=== PATIENT | female | born 1935 | race Caucasian/White ===

== ENCOUNTER 2016-04-15 04:13 | Emergency (ER) | payer MEDICARE ==
[2016-04-15 05:02] LABS: #Basophils 0.1 thou/uL (0.0-0.2); #Lymphocytes 0.8 thou/uL (1.20-3.40); #Monocytes 0.7 thou/uL (0.11-0.59); #Neutrophils 4.2 thou/uL (1.40-6.50); %Eosinophils 0.7 % (0.0-10.0); %Lymphocytes 14.4 % (21.0-51.0); %Monocytes 11.6 % (0.0-10.0); %Neutrophils 72.2 % (42.0-75.0); Hemoglobin 10.2 g/dL (12.0-16.0); Mean Corpuscular Hemoglobin 31.6 pg (27.0-31.0); Mean Corpuscular Volume 92.8 fl (81.0-99.0); Mean Platelet Volume 7.3 fL (7.4-10.4); Platelet Count 209 thou/uL (130-400); RBC Distribution Width 13.2 % (11.5-14.5); Red Blood Cell (RBC) Count 3.23 mill/uL (4.20-5.40); White Blood Cell (WBC) Count 5.7 thou/uL (4.8-10.8)
[2016-04-15 05:04] LABS: INR-International Normal Ratio 1.1; PTT 43.4 SEC (22.9-36.1); Prothrombin Time 14.5 SEC (12.0-14.7)
[2016-04-15 05:14] LABS: ALT (SGPT) 12 U/L (0-55); AST (SGOT) 23 U/L (5-34); Albumin 3.8 g/dL (3.4-4.8); Alkaline Phosphatase 112 U/L (40-150); Anion Gap 18 mmol/L (10-20); BUN (Urea Nitrogen) 19 mg/dL (9.8-20.1); Calc. Creatinine Clearance 0 mL/min (70-130); Calcium 9.5 mg/dL (7.8-10.44); Carbon Dioxide 29 mmol/L (23-31); Chloride 88 mmol/L (98-107); Estimated GFR-MDRD 48; Globulin 3.3 g/dL (2.4-3.5); Glucose 105 mg/dL (83-110); Potassium 3.2 mmol/L (3.5-5.1); Protein, Total 7.1 g/dL (5.8-8.1); Sodium 132 mmol/L (136-145)
[2016-04-15] MEDS ORDERED: Potassium Chloride 10 MEQ TAB ONE (05:29)
--- NOTE | 2016-04-15 05:37 | ERRECORD ---
[facility] EMERGENCY RECORD HPI EPISTAXIS (04:36 SHAN) CHIEF COMPLAINT: Patient presents for evaluation of epistaxis, awoke with right side of nose bleeding; ems called and transported; but had stopped by time ems had arrived. HISTORIAN: History provided by patient, History provided by patient's spouse, History provided by patient's caregiver. EXACERBATED BY: Patient's condition exacerbated by nothing. RELIEVED BY: Patient's condition relieved by nothing. ROS CONSTITUTIONAL: Negative constitutional review of systems, Historian denies chills, denies fever. (04:37 SHAN) EYES: Negative eye review of systems. (04:37 SHAN) ENT: Historian reports epistaxis. (04:38 SHAN) CARDIOVASCULAR: Negative cardiovascular review of systems, Historian denies chest pain, denies palpitations. (04:37 SHAN) RESPIRATORY: Negative respiratory review of systems, Historian denies cough, denies shortness of breath. (04:37 SHAN) GI: Negative gastrointestinal review of systems, Historian denies abdominal pain, denies constipation, denies diarrhea. (04:37 SHAN) MUSCULOSKELETAL: Negative musculoskeletal review of systems. (04:37 SHAN) SKIN: Negative skin review of systems. (04:37 SHAN) NEUROLOGIC: Negative neurologic review of systems. (04:37 SHAN) ENDOCRINE: Negative endocrine review of systems. (04:37 SHAN) HEMO/LYMPHATIC: Normal hematologic/lymphatic system review. (04:37 SHAN) PSYCHIATRIC: Negative psychiatric review of systems. (04:37 SHAN) NOTES: All other ROS is negative except as listed in HPI. (04:37 SHAN) PAST MEDICAL HISTORY MEDICAL HISTORY: Past medical history includes cardiac history, congestive heart failure, arrhythmia, atrial fibrillation, Treated with a pacemaker, since 2009, Past medical history includes history of diabetes, Type II, Past medical history includes endocrine disease. (04:31 MCRS) FEMALE SURGICAL HISTORY: left lower lobe part of lung removed 1964 - unsure of procedure - hernia repair naval 1997., Surgical history of coronary artery bypass graft surgery, Date of surgery 2006, Surgical history of hysterectomy, Date of surgery 1963, Surgical history of orthopedic surgery, right orif, Date of surgery 2015, Surgical history of thyroidectomy, Date of surgery 1966. (04:31 MCRS) PSYCHIATRIC HISTORY: Notes: denies. (04:31 MCRS) SOCIAL HISTORY: Patient denies alcohol use, Patient denies drug use, Patient is a former tobacco user, smoked &a-1R&a+25V*p+0X*n1940P*c202B*c15G*c2P*p-0X&a-25V&a+1R Name: Delilah Smith : 1935 F80 MedRec: [id number] AcctNum: [id number] Prepared: MonApr 15, 2016 06:11 by Interface Page 1 of 4 pMD [facility] EMERGENCY RECORD cigarettes, Patient quit smoking more than 10 years ago, Lives at home, with family. (04:31 MCRS) NOTES: I have reviewed and agree with the PMH/PSxH/FamHx/SocHx obtained by the nurse. (04:37 SHAN) KNOWN ALLERGIES atorvastatin calcium rosuvastatin calcium simvastatin CURRENT MEDICATIONS metFORMIN: TABLET : Strength - 500 mg : ORAL Patient Dose: 500 mg Oral 2 times a day (before meals). (04:29 AGAN) pantoprazole: TABLET, DELAYED RELEASE (ENTERIC COATED) : Strength - 40 mg : ORAL Patient Dose: 40 mg Oral once a day (in the morning). (04:30 AGAN) Requip: TABLET : Strength - 1 mg : ORAL Patient Dose: 1 mg Oral 2 times a day (before meals). (04:30 AGAN) furosemide: TABLET : Strength - 40 mg : ORAL Patient Dose: 40 mg Oral 2 times a day (before meals). (04:30 AGAN) Aspirin For Children: TABLET, CHEWABLE : Strength - 81 mg : ORAL Patient Dose: 81 mg Oral once a day (in the morning). (04:31 AGAN) potassium chloride: TABLET, EXTENDED RELEASE : Strength - 20 mEq : ORAL Patient Dose: 20 mcg Oral 3 times a day. (04:32 AGAN) isosorbide mononitrate: TABLET, EXTENDED RELEASE 24 HR : Strength - 60 mg : ORAL Patient Dose: 60 mg Oral once a day (in the morning). (04:32 AGAN) lovastatin: TABLET : Strength - 20 mg : ORAL Patient Dose: 20 mg Oral once a day (in the evening). (04:33 AGAN) meTOPROLOL tartrate: TABLET : Strength - 50 mg : ORAL Patient Dose: 50 mg Oral 2 times a day. (04:34 AGAN) metolazone: TABLET : Strength - 2.5 mg : ORAL Patient Dose: 2.5 mg Oral once a day (in the morning). (04:34 AGAN) &a-1R&a+25V*p+0X*s3475K*c202B*c15G*c2P*p-0X&a-25V&a+1R Name: Delilah Smith : 1935 F80 MedRec: [id number] AcctNum: [id number] Prepared: MonApr 15, 2016 06:11 by Interface Page 2 of 4 pMD [facility] EMERGENCY RECORD VITAL SIGNS VITAL SIGNS: BP: 132/61 (Lying), Pulse: 81, Resp: 21, Temp: 96.6 (Tympanic), Pain: 0, O2 sat: 99 on Room Air, Time: 04/15/2016 04:14. (04:14 MCRS) BP: 113/49, Pulse: 86, Resp: 18, Temp: 97.0, Pain: 0, O2 sat: 100 on ra, Time: 04/15/2016 05:50. (05:50 MCRS) PHYSICAL EXAM (04:37 SHAN) CONSTITUTIONAL: Vital signs reviewed, Patient appears non toxic, Patient alert and oriented to person, place and time, Pt is in no apparent distress. HEAD: Head exam included findings of head atraumatic, normocephalic. EYES: Eye exam included findings of eyelids normal to inspection, Pupils equally round and reactive to light, Extraocular muscles intact. ENT: ENT exam normal, Nose exam normal, no nasal deformity, no bleeding from nares, Pharynx exam normal, Mouth exam normal, mucous membranes moist. Right nares with recent blood present and some mucosal inflammation. NECK: Neck exam included findings of normal range of motion, Trachea midline. RESPIRATORY CHEST: Respiratory and chest exam normal, Breath sounds clear, No wheezing, No rales, Chest exam included findings of chest movement symmetrical, Chest expansion equal. CARDIOVASCULAR: Cardiovascular assessment normal, Cardiovascular exam included findings of heart rate regular rate and rhythm, Heart sounds normal. Defibrillator in right upper chest. ABDOMEN FEMALE: Abdominal exam included findings of abdomen nontender, Bowel sounds normal, no mass, no pulsatile masses, no peritoneal signs. BACK: Back exam included findings of normal inspection, range of motion normal, no costovertebral angle tenderness. UPPER EXTREMITY: Upper extremity exam included findings of inspection normal, Range of motion normal. LOWER EXTREMITY: Range of motion normal, both legs with edema, left more than right; chronic by hx but fairly marked. left has been more since the prior venous harvesting from it for bypass surgery. NEURO: Neuro exam findings include patient oriented to person, place and time, Speech normal, no focal motor deficits, no focal sensory deficits. SKIN: Skin exam included findings of skin warm, dry, and normal in color. LYMPHATIC: Lymphatic exam normal. PSYCHIATRIC: Psychiatric exam included findings of patient oriented to person place and time, Normal affect. MEDICATION ADMINISTRATION SUMMARY &a-1R&a+25V*p+0X*c6509Z*c202B*c15G*c2P*p-0X&a-25V&a+1R Name: Delilah Smith : 1935 F80 MedRec: [id number] AcctNum: [id number] Prepared: MonApr 15, 2016 06:11 by Interface Page 3 of 4 pMD [facility] EMERGENCY RECORD Drug Name: *potassium chloride oral, Dose Ordered: 2 tab(s), Route: Oral, Status: Given, Time: 05:32 04/15/2016, *Additional information available in notes, Detailed record available in Medication Service section. DOCTOR NOTES (05:26 SHAN) TEXT: No more bleeding; discussed care of nosebleeds. Labs good; mildly low potassium; mild anemia. PROBLEM LIST No recorded problems DIAGNOSIS (05:28 SHAN) FINAL: PRIMARY: EPISTAXIS. PRESCRIPTION No recorded prescriptions DISPOSITION PATIENT: Disposition Type: Discharge, Disposition: *Discharge Home. (05:28 SHAN) Disposition Transport: Car. (06:03 [facility]) Patient left the department. (06:04 [facility]) Cedeño: DREW=AMBIKA Joseph, Celestino FOSS=AMBIKA Hunter, Baltazar RODRIGEZ=MD Merritt, Flaco &a-1R&a+25V*p+0X*r8170K*c202B*c15G*c2P*p-0X&a-25V&a+1R Name: Delilah Smith : 1935 F80 MedRec: [id number] AcctNum: [id number] Prepared: MonApr 15, 2016 06:11 by Interface Page 4 of 4 pMD SHAWNA
--- NOTE | 2016-04-15 05:43 | PICIS ---
[facility] EMERGENCY RECORD COMMUNICATIONS (04:19 AGAN) COMMUNICATIONS: Ambulance service, 0400: Call received from EMT-P Sonny of [facility]. They are bringing in an 80 years old female who had a nose bleed 1 1/2 hours ago. The bleeding has stopped at this time. ETA 5 minutes. TRIAGE (MonApr 15, 2016 04:19 MCRS) TRIAGE NOTES: nose bleed 0200 start - stopped prior to arrival -. (MonApr 15, 2016 04:19 MCRS) PATIENT: NAME: Delilah Smith, AGE: 80, GENDER: female, : Mon1935, TIME OF GREET: MonApr 15, 2016 04:13, PREFERRED LANGUAGE: Icelandic, ETHNICITY: Not or , ECODE BILLING MAP: [facility], SSN: [id number], Zip Code: [address], PHONE: , , , PERSON ID: [id number], PCP: romina. (MonApr 15, 2016 04:19 MCRS) KG WEIGHT: 60.8 (est.). (05:08 MCRS) COMPLAINT: NOSE BLEED. (MonApr 15, 2016 04:19 MCRS) ADMISSION: URGENCY: 4 Non Urgent, ADMISSION SOURCE: Home, TRANSPORT: AMBULANCE - OTHER, BED: ED -01. (MonApr 15, 2016 04:19 MCRS) ASSESSMENT: Assessment: nose bleed 0230- stopped in route to hospital, Symptoms began 0230. (04:31 MCRS) SIRS SCORING: Heart Rate 55-109 (0), Temp range 96.8-101.1 (0), respiratory rate 12-24 (0), Mental Status altered: no (0), Infection or Suspected Infection: No. (04:31 MCRS) PROVIDERS: TRIAGE NURSE: Baltazar Hunter RN. (MonApr 15, 2016 04:19 MCRS) VITAL SIGNS: BP 132/61, (Lying), Pulse 81, Resp 21, Temp 96.6, (Tympanic), Pain 0, O2 Sat 99, on Room Air, Time 04/15/2016 04:14. (04:14 MCRS) KNOWN ALLERGIES atorvastatin calcium rosuvastatin calcium simvastatin CURRENT MEDICATIONS metFORMIN: TABLET : Strength - 500 mg : ORAL Patient Dose: 500 mg Oral 2 times a day (before meals). (04:29 AGAN) pantoprazole: TABLET, DELAYED RELEASE (ENTERIC COATED) : Strength - 40 mg : ORAL Patient Dose: 40 mg Oral once a day (in the morning). (04:30 AGAN) Requip: TABLET : Strength - 1 mg : ORAL Patient Dose: 1 mg Oral 2 times a day (before meals). (04:30 AGAN) &a-1R&a+25V*p+0X*l5072H*c202B*c15G*c2P*p-0X&a-25V&a+1R Name: Delilah Smith : 1935 F80 MedRec: [id number] AcctNum: [id number] Prepared: MonApr 15, 2016 06:16 by Interface Page 1 of 8 pMD [facility] EMERGENCY RECORD furosemide: TABLET : Strength - 40 mg : ORAL Patient Dose: 40 mg Oral 2 times a day (before meals). (04:30 AGAN) Aspirin For Children: TABLET, CHEWABLE : Strength - 81 mg : ORAL Patient Dose: 81 mg Oral once a day (in the morning). (04:31 AGAN) potassium chloride: TABLET, EXTENDED RELEASE : Strength - 20 mEq : ORAL Patient Dose: 20 mcg Oral 3 times a day. (04:32 AGAN) isosorbide mononitrate: TABLET, EXTENDED RELEASE 24 HR : Strength - 60 mg : ORAL Patient Dose: 60 mg Oral once a day (in the morning). (04:32 AGAN) lovastatin: TABLET : Strength - 20 mg : ORAL Patient Dose: 20 mg Oral once a day (in the evening). (04:33 AGAN) meTOPROLOL tartrate: TABLET : Strength - 50 mg : ORAL Patient Dose: 50 mg Oral 2 times a day. (04:34 AGAN) metolazone: TABLET : Strength - 2.5 mg : ORAL Patient Dose: 2.5 mg Oral once a day (in the morning). (04:34 AGAN) VITAL SIGNS VITAL SIGNS: BP: 132/61 (Lying), Pulse: 81, Resp: 21, Temp: 96.6 (Tympanic), Pain: 0, O2 sat: 99 on Room Air, Time: 04/15/2016 04:14. (04:14 MCRS) BP: 113/49, Pulse: 86, Resp: 18, Temp: 97.0, Pain: 0, O2 sat: 100 on ra, Time: 04/15/2016 05:50. (05:50 MCRS) NURSING ASSESSMENT: ENT (04:31 MCRS) CONSTITUTIONAL: Patient arrives, via stretcher, History obtained from patient, Patient appears comfortable, Patient cooperative, Patient alert, Oriented to person, place and time, Skin warm, Skin dry, Skin normal in color, Mucous membranes pink, Mucous membranes moist, Patient is well-groomed, Patient complains of nose bleed. ENT: Ear assessment findings include ear normal to inspection, Nasal assessment findings include nose normal to inspection, Sinuses normal, Nasal mucosa, unable to visualize due to clot frombleeding, Mouth and throat assessment findings include mouth inspection normal, Mucous membranes pink, and moist, Able to swallow, Speech normal. RESPIRATORY/CHEST: Breath sounds clear, Respiratory assessment findings include respiratory effort easy, Respirations regular, Conversing normally, Neck and chest exam findings include trachea midline, Chest expansion equal, Chest movement symmetrical. &a-1R&a+25V*p+0X*z3279P*c202B*c15G*c2P*p-0X&a-25V&a+1R Name: Delilah Smith : 1935 F80 MedRec: [id number] AcctNum: [id number] Prepared: MonApr 15, 2016 06:16 by Interface Page 2 of 8 pMD [facility] EMERGENCY RECORD SAFETY: Side rails up, Cart/Stretcher in lowest position, Family at bedside, Call light within reach, Hospital ID band on. NURSING PROCEDURE: ARBORICULTURE TEACHER (04:52 MCRS) ARBORICULTURE TEACHER: Cardiac monitoring indicated for history chf and at fib with pacemaker placement, Patient placed on cardiac exercise specialist, Heart rate: 80, showing atrial fibrillation, Patient placed on non-invasive blood pressure monitor, Patient placed on continuous pulse oximetry. NURSING PROCEDURE: DISCHARGE NOTE (05:50 MCRS) DISCHARGE: Patient discharged to home, in a wheelchair, family driving, accompanied by //partner, Summary of Care printed/ provided, Patient requested and was provided an electronic copy of Discharge Instructions, Transition record given to patient, Discharge instructions given to patient, Discharge instructions given to daughter and son, Simple or moderate discharge teaching performed, discharge instructions, Medication reconciliation form given, and reviewed with patient, and reviewed with see list, Above person(s) verbalized understanding of discharge instructions and follow-up care, Patient treated and evaluated by physician. BELONGINGS: Valuables remain with patient. VITAL SIGNS: BP: 113, / 49, Pulse: 86, Resp: 18, Temp: 97.0, Pain: 0, O2 sat: 100, on: ra. NURSING PROCEDURE: NURSE NOTES (04:51 [facility]) NURSES NOTES: Warm blanket given to patient. ORDER DETAILS Order Name: CBC with Differential, Status: Active, Time: 04:36 04/15/2016, User: ELIA, - Ordered for: MD Bang Stanley, - Entered by: MD Bang Stanley - [facility] Apr 15, 2016 04:36, - Quantity: 1, Order Name: Comprehensive Metabolic Panel, Status: Active, Time: 04:36 04/15/2016, User: ELIA, - Ordered for: MD Bang Stanley, - Entered by: MD Bang Stanley - [facility] Apr 15, 2016 04:36, - Quantity: 1, Order Name: Protime with INR, Status: Active, Time: 04:36 04/15/2016, User: ELIA, - Ordered for: MD Bang Stanley, - Entered by: MD Bang Stanley - [facility] Apr 15, 2016 04:36, - Quantity: 1, Order Name: PTT, Status: Active, Time: 04:36 04/15/2016, User: ELIA, - Ordered for: MD Bang Stanley, - Entered by: MD Bang Stanley - [facility] Apr 15, 2016 04:36, - Quantity: 1. &a-1R&a+25V*p+0X*l3737I*c202B*c15G*c2P*p-0X&a-25V&a+1R Name: Delilah Smith : 1935 F80 MedRec: [id number] AcctNum: [id number] Prepared: MonApr 15, 2016 06:16 by Interface Page 3 of 8 pMD [facility] EMERGENCY RECORD MEDICATION ADMINISTRATION SUMMARY Drug Name: *potassium chloride oral, Dose Ordered: 2 tab(s), Route: Oral, Status: Given, Time: 05:32 04/15/2016, *Additional information available in notes, Detailed record available in Medication Service section. MEDICATION SERVICE potassium chloride oral: Order: potassium chloride oral (potassium chloride) - Dose: 2 tab(s) : Oral Schedule: Now Notes: 10 meq each; total of 20 meq Ordered by: Flaco Bang MD Entered by: Flaco Bang MD MonApr 15, 2016 05:26 , Acknowledged by: Baltazar Hunter RN MonApr 15, 2016 05:28 Documented as given by: Baltazar Hunter RN MonApr 15, 2016 05:32 Patient, Medication, Dose, Route and Time verified prior to administration. Amount given: 20meq, Site: Medication administered P.O., Snack given with administration, Patient appears Awake and alert- acceptable, Correct patient, time, route, dose and medication confirmed prior to administration, Patient advised of actions and side-effects prior to administration, Allergies confirmed and medications reviewed prior to administration, Patient in position of comfort, Side rails up, Cart in lowest position, Family at bedside. : Follow Up : Response assessment performed, No signs or symptoms of allergic reaction noted, No change in symptoms. (05:50 MCRS) HPI EPISTAXIS (04:36 SHAN) CHIEF COMPLAINT: Patient presents for evaluation of epistaxis, awoke with right side of nose bleeding; ems called and transported; but had stopped by time ems had arrived. HISTORIAN: History provided by patient, History provided by patient's spouse, History provided by patient's caregiver. EXACERBATED BY: Patient's condition exacerbated by nothing. RELIEVED BY: Patient's condition relieved by nothing. ROS CONSTITUTIONAL: Negative constitutional review of systems, Historian denies chills, denies fever. (04:37 SHAN) EYES: Negative eye review of systems. (04:37 SHAN) ENT: Historian reports epistaxis. (04:38 SHAN) CARDIOVASCULAR: Negative cardiovascular review of systems, Historian denies chest pain, denies palpitations. (04:37 SHAN) RESPIRATORY: Negative respiratory review of systems, Historian denies cough, denies shortness of breath. (04:37 SHAN) GI: Negative gastrointestinal review of systems, Historian denies abdominal pain, denies constipation, denies diarrhea. (04:37 SHAN) &a-1R&a+25V*p+0X*m1673F*c202B*c15G*c2P*p-0X&a-25V&a+1R Name: Delilah Smith : 1935 F80 MedRec: [id number] AcctNum: [id number] Prepared: MonApr 15, 2016 06:16 by Interface Page 4 of 8 pMD [facility] EMERGENCY RECORD MUSCULOSKELETAL: Negative musculoskeletal review of systems. (04:37 SHAN) SKIN: Negative skin review of systems. (04:37 SHAN) NEUROLOGIC: Negative neurologic review of systems. (04:37 SHAN) ENDOCRINE: Negative endocrine review of systems. (04:37 SHAN) HEMO/LYMPHATIC: Normal hematologic/lymphatic system review. (04:37 SHAN) PSYCHIATRIC: Negative psychiatric review of systems. (04:37 SHAN) NOTES: All other ROS is negative except as listed in HPI. (04:37 SHAN) PAST MEDICAL HISTORY MEDICAL HISTORY: Past medical history includes cardiac history, congestive heart failure, arrhythmia, atrial fibrillation, Treated with a pacemaker, since 2009, Past medical history includes history of diabetes, Type II, Past medical history includes endocrine disease. (04:31 MCRS) FEMALE SURGICAL HISTORY: left lower lobe part of lung removed 1964 - unsure of procedure - hernia repair naval 1997., Surgical history of coronary artery bypass graft surgery, Date of surgery 2006, Surgical history of hysterectomy, Date of surgery 1963, Surgical history of orthopedic surgery, right orif, Date of surgery 2015, Surgical history of thyroidectomy, Date of surgery 1966. (04:31 MCRS) PSYCHIATRIC HISTORY: Notes: denies. (04:31 MCRS) SOCIAL HISTORY: Patient denies alcohol use, Patient denies drug use, Patient is a former tobacco user, smoked cigarettes, Patient quit smoking more than 10 years ago, Lives at home, with family. (04:31 MCRS) NOTES: I have reviewed and agree with the PMH/PSxH/FamHx/SocHx obtained by the nurse. (04:37 SHAN) PHYSICAL EXAM (04:37 SHAN) CONSTITUTIONAL: Vital signs reviewed, Patient appears non toxic, Patient alert and oriented to person, place and time, Pt is in no apparent distress. HEAD: Head exam included findings of head atraumatic, normocephalic. EYES: Eye exam included findings of eyelids normal to inspection, Pupils equally round and reactive to light, Extraocular muscles intact. ENT: ENT exam normal, Nose exam normal, no nasal deformity, no bleeding from nares, Pharynx exam normal, Mouth exam normal, mucous membranes moist. Right nares with recent blood present and some mucosal inflammation. NECK: Neck exam included findings of normal range of motion, Trachea midline. RESPIRATORY CHEST: Respiratory and chest exam normal, Breath &a-1R&a+25V*p+0X*r9303M*c202B*c15G*c2P*p-0X&a-25V&a+1R Name: Delilah Smith : 1935 F80 MedRec: [id number] AcctNum: [id number] Prepared: MonApr 15, 2016 06:16 by Interface Page 5 of 8 pMD [facility] EMERGENCY RECORD sounds clear, No wheezing, No rales, Chest exam included findings of chest movement symmetrical, Chest expansion equal. CARDIOVASCULAR: Cardiovascular assessment normal, Cardiovascular exam included findings of heart rate regular rate and rhythm, Heart sounds normal. Defibrillator in right upper chest. ABDOMEN FEMALE: Abdominal exam included findings of abdomen nontender, Bowel sounds normal, no mass, no pulsatile masses, no peritoneal signs. BACK: Back exam included findings of normal inspection, range of motion normal, no costovertebral angle tenderness. UPPER EXTREMITY: Upper extremity exam included findings of inspection normal, Range of motion normal. LOWER EXTREMITY: Range of motion normal, both legs with edema, left more than right; chronic by hx but fairly marked. left has been more since the prior venous harvesting from it for bypass surgery. NEURO: Neuro exam findings include patient oriented to person, place and time, Speech normal, no focal motor deficits, no focal sensory deficits. SKIN: Skin exam included findings of skin warm, dry, and normal in color. LYMPHATIC: Lymphatic exam normal. PSYCHIATRIC: Psychiatric exam included findings of patient oriented to person place and time, Normal affect. EVENTS TRANSFER: Triage to Emergency Main ED -01. (MonApr 15, 2016 04:19 MCRS) Removed from Emergency Main ED -01. (06:04 MCRS) DOCTOR NOTES (05:26 SHAN) TEXT: No more bleeding; discussed care of nosebleeds. Labs good; mildly low potassium; mild anemia. PROBLEM LIST No recorded problems DIAGNOSIS (05:28 SHAN) FINAL: PRIMARY: EPISTAXIS. DISPOSITION PATIENT: Disposition Type: Discharge, Disposition: *Discharge Home. (05:28 SHAN) Disposition Transport: Car. (06:03 MCRS) Patient left the department. (06:04 MCRS) INSTRUCTION (05:29 SHAN) DISCHARGE: EPISTAXIS (ADULT). FOLLOWUP: Kiki ALCOCER, GAMAL, Internal Medicine, [address] [facility] [id number], [phone]. &a-1R&a+25V*p+0X*x2073Z*c202B*c15G*c2P*p-0X&a-25V&a+1R Name: Delilah Smith : 1935 F80 MedRec: [id number] AcctNum: [id number] Prepared: MonApr 15, 2016 06:16 by Interface Page 6 of 8 pMD [facility] EMERGENCY RECORD SPECIAL: 1. return if problem recurs 2. followup with regular provider in a few days. PRESCRIPTION No recorded prescriptions IMAGING AMBULANCE REPORT: Image captured from scanner. (04:58 AGAN) *SUPPLY CHARGE SHEET: Image captured from scanner. (05:54 MCRS) *DISCHARGE INSTRUCTIONS RECEIPT: Image captured from scanner. (05:54 MCRS) VITAL SIGNS: Image captured from scanner. (05:59 MCRS) ADMIN (05:29 SHAN) DIGITAL SIGNATURE: MD Bang Stanley. RESULTS LABORATORY: PTT Collection DT: MonApr 15, 2016 04:53, See comment below , Anticoagulant? NONE Medical Necessity SUSPECT COAGULOPATHY , *PTT 43.4 - H SEC, Range (22.9-36.1). (05:13 AGAN) Protime with INR Collection DT: MonApr 15, 2016 04:53, See comment below , Anticoagulant? NONE Medical Necessity SUSPECT COAGULOPATHY , Prothrombin Time 14.5 SEC, Range (12.0-14.7), INR-International Normal Ratio 1.1 , ATTENTION: READ CAREFULLY , The, recommended therapeutic ranges for oral anticoagulant treatments are: , , Low Intensity: 1.5 - 2.0 Moderate Intensity: 2.0, - 3.0 High Intensity (1): 2.5 - 3.5 High, Intensity (2): 3.0 - 4.0 CRITICAL: >, 4.0 . (05:13 AGAN) CBC with Differential Collection DT: MonApr 15, 2016 04:53, White Blood Cell (WBC) Count 5.7 thou/uL, Range (4.8-10.8), *Red Blood Cell (RBC) Count 3.23 - L mill/uL, Range (4.20-5.40), *Hemoglobin 10.2 - L g/dL, Range (12.0-16.0), *Hematocrit 30.0 - L %, Range (36.0-47.0), Mean Corpuscular Volume 92.8 fl, Range (81.0-99.0), *Mean Corpuscular Hemoglobin 31.6 - H pg, Range (27.0-31.0), Mean Corpuscular HGB CONC 34.0 g/dL, Range (32.0-36.0), &a-1R&a+25V*p+0X*u8038X*c202B*c15G*c2P*p-0X&a-25V&a+1R Name: Delilah Smith : 1935 F80 MedRec: [id number] AcctNum: [id number] Prepared: MonApr 15, 2016 06:16 by Interface Page 7 of 8 pMD [facility] EMERGENCY RECORD RBC Distribution Width 13.2 %, Range (11.5-14.5), Platelet Count 209 thou/uL, Range (130-400), *Mean Platelet Volume 7.3 - L fL, Range (7.4-10.4), %Neutrophils 72.2 %, Range (42.0-75.0), *%Lymphocytes 14.4 - L %, Range (21.0-51.0), *%Monocytes 11.6 - H %, Range (0.0-10.0), %Eosinophils 0.7 %, Range (0.0-10.0), %Basophils 1.0 %, Range (0.0-1.0), #Neutrophils 4.2 thou/uL, Range (1.40-6.50), *#Lymphocytes 0.8 - L thou/uL, Range (1.20-3.40), *#Monocytes 0.7 - H thou/uL, Range (0.11-0.59), #Eosinphils 0.0 thou/uL, Range (0.0-0.7), #Basophils 0.1 thou/uL, Range (0.0-0.2). (05:13 [facility]) Comprehensive Metabolic Panel Collection DT: MonApr 15, 2016 04:53, *Sodium 132 - L mmol/L, Range (136-145), *Potassium 3.2 - L mmol/L, Range (3.5-5.1), *Chloride 88 - L mmol/L, Range (98-107), Carbon Dioxide 29 mmol/L, Range (23-31), Anion Gap 18 mmol/L, Range (10-20), BUN (Urea Nitrogen) 19 mg/dL, Range (9.8-20.1), Creatinine 1.09 mg/dL, Range (0.6-1.1), Estimated GFR-MDRD 48 , Reference Range for Estimated GFR: Greater than 90, mL/min/1.73 m2 NOTE: The MDRD equation has not been validated for use, with the elderly (over 70 years of age), women, patients with, serious comorbid condition or persons with extremes of body size, muscle, mass, or nutritional status. , Glucose 105 mg/dL, Range (83-110), Calcium 9.5 mg/dL, Range (7.8-10.44), Bilirubin, Total 1.0 mg/dL, Range (0.2-1.2), Protein, Total 7.1 g/dL, Range (5.8-8.1), NOTE: Plasma values are generally 0.3 to 0.5 g/dL higher than serum values, due to the presence of fibrinogen. , Albumin 3.8 g/dL, Range (3.4-4.8), Globulin 3.3 g/dL, Range (2.4-3.5), Alb/Glob Ratio 1.2 g/dL, Range (1.2-2.2), Alkaline Phosphatase 112 U/L, Range (40-150), AST (SGOT) 23 U/L, Range (5-34), ALT (SGPT) 12 U/L, Range (0-55). (05:23 ELIA) Cedeño: DREW=AMBIKA Joseph, Celestino FOSS=AMBIKA Hunter, Baltazar RODRIGEZ=MD Merritt, Flaco &a-1R&a+25V*p+0X*b3546J*c202B*c15G*c2P*p-0X&a-25V&a+1R Name: Delilah Smith Carolyn : 1935 F80 MedRec: [id number] AcctNum: [id number] Prepared: MonApr 15, 2016 06:16 by Interface Page 8 of 8 pMD MTDD
== END 2016-04-15 05:50 | disposition home or self-care (01) ==
LOC: MADERS 04:13
DX: R04.0 Epistaxis (principal); I50.9 Heart failure, unspecified; I48.91 Unspecified atrial fibrillation; E11.9 Type 2 diabetes mellitus without complications; Z87.891 Personal history of nicotine dependence
CPT/HCPCS: 36415; 80053; 85025; 85610; 85730; 99283

== ENCOUNTER 2016-06-13 08:40 | Emergency (ER) | payer MEDICARE ==
--- NOTE | 2016-06-13 10:50 | CT ---
CT OF CERVICAL SPINE WITHOUT CONTRAST: DATE: 06/13/16. COMPARISON: None. HISTORY: Fall, posterior head laceration, pain, trauma. TECHNIQUE: Serial axial CT Imaging at 2.5 mm intervals from skull base through lung apices without contrast. C oronal and sagittal reformatted imaging obtained. FINDINGS: C1 ring is intact. The occipital condyles, the C1-2 articulation, and the dens demonstrate no acute findings. There is moderate degenerative change at the atlantoaxial interspace. The craniocervical junction a nd cervicothoracic junction demonstrates no acute findings. 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 No prevertebral soft tissue swelling is noted. There is a subtle clustered area of reticulonodular density within the medial aspect of the left upp er lobe on image 66. There is a tiny nodule in the right upper lobe measuring 3 mm on image 66. In completely visualized transvenous pacing device present. Atherosclerotic calcification of cavernous carotid arteries noted. The thyroid gland is diffusely irregular with numerous hypodense nodules within the right thyroid lo be and isthmus. Left thyroid lobe appears absent. There is no displaced fracture or evidence of dislocation seen. There is no significant anterolisthesis or retrolisthesis noted. C2-3: Bilateral facet hypertrophy with no osseous cause of significant central canal or neural fora nancy stenosis. Anterior osteophyte formation noted right of midline. C3-4: Bilateral facet hypertrophy, right greater than left, with right uncovertebral osteophyte for mation and associated right neural foraminal stenosis. C4-5: Bilateral facet and uncovertebral osteophyte formation with significant bilateral neural fora nancy stenosis. Posterior osteophyte formation. C5-6: Bilateral facet and uncovertebral osteophyte formation, right greater than left. Bilateral n eural foraminal stenosis, particularly on the right. 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 C7-T1: Prominent bilateral facet hypertrophy, right greater than left. Posterior osteophyte presen t. IMPRESSION: 1. Prominent multilevel degenerative change. No displaced fracture or dislocation noted. 2. Abnormal involving bilateral lung apices, nonemergent and of uncertain clinical significance. P lease consider a nonemergent followup chest CT for full assessment. CODE T POS: EMILY
--- NOTE | 2016-06-13 10:54 | CT ---
CT BRAIN WITHOUT CONTRAST: Date: 06/13/16 HISTORY: Fall. Laceration to back of head. No loss of consciousness. Headache. FINDINGS: No evidence of acute infarct, hemorrhage, midline shift, or abnormal extra-axial fluid collections a re seen. The ventricular size is appropriate and the basilar cisterns are patent. The bony calvarium is intact. The visualized paranasal sinuses are well aerated. There is a soft tissue scalp contusio n in the left posterior parietal region at the level of the vertex. Surgical clips are present. IMPRESSION: No CT evidence of acute intracranial process. POS: [facility]
[2016-06-13] MEDS ORDERED: Sodium Chloride Irrig Solution 250 ML BOT ONE (13:15)
== END 2016-06-13 10:05 | disposition home or self-care (01) ==
LOC: MADERS 08:40
DX: S01.00XA Unspecified open wound of scalp, initial encounter (principal); R91.1 Solitary pulmonary nodule; I48.91 Unspecified atrial fibrillation; E11.9 Type 2 diabetes mellitus without complications; I50.9 Heart failure, unspecified; Z87.891 Personal history of nicotine dependence; Z79.84 Long term (current) use of oral hypoglycemic drugs; Z79.82 Long term (current) use of aspirin; Z79.899 Other long term (current) drug therapy; W22.01XA Walked into wall, initial encounter
CPT/HCPCS: 12015; 70450; 72125

== ENCOUNTER 2016-06-29 11:37 | Emergency (ER) | payer MEDICARE ==
[~2016-06-29 11:37] MED LIST: Sodium Chloride Irrig Solution 250 ML BOT ONE
== END 2016-06-29 12:45 | disposition home or self-care (01) ==
LOC: MADERS 11:37
DX: S01.01XD Laceration without foreign body of scalp, subsequent encounter (principal); L02.811 Cutaneous abscess of head [any part, except face]; I48.91 Unspecified atrial fibrillation; E11.9 Type 2 diabetes mellitus without complications; I50.9 Heart failure, unspecified; Z87.891 Personal history of nicotine dependence; Z95.0 Presence of cardiac pacemaker; Z79.84 Long term (current) use of oral hypoglycemic drugs; Z79.2 Long term (current) use of antibiotics; Z79.899 Other long term (current) drug therapy; Z79.82 Long term (current) use of aspirin; X58.XXXD Exposure to other specified factors, subsequent encounter
CPT/HCPCS: 99282